=== PATIENT | female | born 1965 | race Caucasian/White ===

== ENCOUNTER 2016-02-26 19:03 | Emergency (ER) | payer OTHER ==
[~2016-02-26] VITALS: Ht 165.1 cm; Wt 101.7 kg
[~2016-02-26 19:03] MED LIST: ASMANEX HFA13 G1 IH; ATIVAN1 MG PO; BACLOFEN10 MG PO; CLARITIN10 M3 PO; COLACE100 MG PO; COMBIVENT RESPIM4 GM IH; COMBIVENT200 INHALA IH; DILAUDID2 MG PO; FLEET ENEMA-AD118 ML PR; FLOVENT 22120 INHALA IH; GRALISE300 MG PO; LISINOPRIL10 MG PO; LISINOPRIL20 MG PO; LORATADINE10 M2 PO; LORAZEPAM0.5 MG PO; LORTAB 5-325 M1 EACH PO; MEDROL DOSEPAK4 MG PO; MIRALAX255 GM PO; MORPHINE SULFAT15 M1 PO; NEURONTIN300 MG PO; NORCO 5/3251 TABLET PO; ONDANSETRON ODT4 MG PO; OXYCODONE HCL5 M1 PO; OXYCODONE-APAP1 EAC6 PO; PERCOCET 5/31 TABLET PO; PREDNISONE10 MG PO; PREMARIN VAGI42.5 GM VG; PRENATAL TABLE1 EAC3 PO; ROBAXIN750 MG PO; ROBITUSSIN NIG118 ML PO; TESSALON200 MG PO; VALIUM2 MG PO; VENTOLIN HFA18 GM; VENTOLIN HFA18 GM IH; ZOFRAN4 MG PO
[2016-02-26] MEDS ORDERED: CLEOCIN300 MG PO (20:08)
[2016-02-26] MEDS ORDERED: PERCOCET 5/31 TABLET PO (20:08)
[2016-02-26 20:56] VITALS: BP 115/96
== END 2016-02-26 20:57 | disposition home or self-care (01) ==
LOC: EME 19:03 → EXP 19:03
PROC: 0H9BXZZ Drainage of Right Upper Arm Skin, External Approach (ICD-10-PCS; principal; 2016-02-26)
DX: L02.411 Cutaneous abscess of right axilla (principal)
CPT/HCPCS: 99281; 99283

== ENCOUNTER 2016-02-29 13:57 | Emergency (ER) | payer OTHER ==
[~2016-02-29] VITALS: Ht 165.1 cm; Wt 101.2 kg
[~2016-02-29 13:57] MED LIST changes: +CLEOCIN300 MG PO
[2016-02-29] MEDS ORDERED: PERCOCET 5/31 TABLET PO (14:50)
[2016-02-29 15:15] VITALS: BP 143/90
== END 2016-02-29 15:17 | disposition home or self-care (01) ==
LOC: EME 13:57
DX: Z48.01 Encounter for change or removal of surgical wound dressing (principal); L02.411 Cutaneous abscess of right axilla
CPT/HCPCS: 99281; 99283

== ENCOUNTER 2016-04-19 13:43 | Outpatient (CLI) | payer OTHER ==
[~2016-04-19] VITALS: Ht 165.1 cm; Wt 95.0 kg
[2016-04-19 14:29] LABS: HEMATOCRIT 39.7 % (36.0-46.0); MCH 29.6 PG (29.0-34.0); MCV 89.6 FL (83-99); MEAN PLAT.VOLUME 10.6 uM^3 (9.5-12.4); PLATELET COUNT 190 K/uL (156-360); RBC DIS.WIDTH-CV 12.9 % (11.8-14.6); RBC DIS.WIDTH-SD 41.7 % (39-53); RED BLOOD COUNT 4.43 M/uL (3.80-5.20); WHITE BLOOD COUNT 5.1 K/uL (4.1-10.2)
[2016-04-19 14:37] LABS: CHLORIDE 103 mEq/L (99-109); POTASSIUM 4.6 mEq/L (3.7-5.4); SODIUM 137 mEq/L (136-147)
[2016-04-19 14:39] LABS: GLUCOSE 97 mg/dL (70-99)
[2016-04-19 14:40] LABS: ANION GAP 10 MEQ/L (2-14)
[2016-04-19 14:43] LABS: GFR ESTIMATE (CALCULATED) > 59 mL/min/
[2016-04-19 14:44] LABS: UREA NITROGEN (BUN) 8 mg/dL (9-23)
[2016-04-19 15:26] LABS: TROP-I INTERPRETATION NEGATIVE; TROPONIN-I < 0.01 ng/mL (0.0-0.30)
[2016-04-19 17:58] VITALS: BP 107/66
[2016-04-19 18:53] LABS: POINT-OF-CARE METER ID UU13113702
== END 2016-04-19 20:52 | disposition home or self-care (01) ==
LOC: AMB 13:43 → EME 13:43 → OPR 19:00 → EME 19:00 → SDC 19:00 → EME 19:00 → AMB 20:52 → SDC 20:52 → EDSTATUS 04-20 19:00
PROVIDERS: Emergency Medicine; Nurse Practitioner Family
PROC: 0DC38ZZ Extirpation of Matter from Lower Esophagus, Via Natural or Artificial Opening Endoscopic (ICD-10-PCS; principal; 2016-04-19)
DX: T18.128A Food in esophagus causing other injury, initial encounter (principal); R13.10 Dysphagia, unspecified; K22.10 Ulcer of esophagus without bleeding; K44.9 Diaphragmatic hernia without obstruction or gangrene; K29.70 Gastritis, unspecified, without bleeding; K29.80 Duodenitis without bleeding; J44.9 Chronic obstructive pulmonary disease, unspecified; G89.29 Other chronic pain; I10 Essential (primary) hypertension; Z79.891 Long term (current) use of opiate analgesic; Z88.1 Allergy status to other antibiotic agents; Z88.8 Allergy status to other drugs, medicaments and biological substances; Z88.6 Allergy status to analgesic agent; Z88.0 Allergy status to penicillin; F17.200 Nicotine dependence, unspecified, uncomplicated
CPT/HCPCS: 71020; 80048; 82948; 84484; 85027; 99281; 99285; C9113; J0330; J1100; J1170; J2270; J2405; J2765; J7030

== ENCOUNTER 2016-07-01 22:25 | Emergency (ER) | payer OTHER ==
[~2016-07-01] VITALS: Ht 165.1 cm; Wt 103.9 kg
[2016-07-02 00:14] VITALS: BP 170/118
== END 2016-07-02 00:15 | disposition home or self-care (01) ==
LOC: EME 22:25 → RME 22:25
DX: S43.402A Unspecified sprain of left shoulder joint, initial encounter (principal); X58.XXXA Exposure to other specified factors, initial encounter; I10 Essential (primary) hypertension; J44.9 Chronic obstructive pulmonary disease, unspecified; F17.200 Nicotine dependence, unspecified, uncomplicated
CPT/HCPCS: 73030; 99281; 99283; J1100

== ENCOUNTER 2016-08-09 21:27 | Observation (INO) | payer OTHER ==
[~2016-08-09] VITALS: Ht 165.1 cm; Wt 106.0 kg
[2016-08-09 21:47] LABS: HEMATOCRIT 43.6 % (36.0-46.0); MCH 29.7 PG (29.0-34.0); MCHC 32.8 G/DL (30.0-36.0); MCV 90.5 FL (83-99); PLATELET COUNT 206 K/uL (156-360); RBC DIS.WIDTH-CV 12.5 % (11.8-14.6); RBC DIS.WIDTH-SD 41.1 % (39-53); RED BLOOD COUNT 4.82 M/uL (3.80-5.20); WHITE BLOOD COUNT 6.2 K/uL (4.1-10.2)
[2016-08-09 21:58] LABS: CHLORIDE 108 mEq/L (99-109); POTASSIUM 3.8 mEq/L (3.7-5.4); SODIUM 142 mEq/L (136-147)
[2016-08-09 22:00] LABS: GLUCOSE 99 mg/dL (70-99)
[2016-08-09 22:01] LABS: ANION GAP 9 MEQ/L (2-14)
[2016-08-09 22:03] LABS: GFR ESTIMATE (CALCULATED) > 59 mL/min/
[2016-08-09 22:04] LABS: UREA NITROGEN (BUN) 10 mg/dL (9-23)
[2016-08-09 22:08] LABS: TROP-I INTERPRETATION NEGATIVE; TROPONIN-I < 0.01 ng/mL (0.0-0.30)
[2016-08-09] MEDS ORDERED: ATIVAN0.5 MG PO (22:32)
[2016-08-09] MEDS ORDERED: OMEPRAZOLE20 M2 PO (22:33)
[2016-08-09] MEDS ORDERED: VENTOLIN HFA18 GM IH (22:33)
[2016-08-09] MEDS ORDERED: PERCOCET 7.51 TABLET PO (22:33)
[2016-08-09] MEDS ORDERED: FLONASE16 G1 BOTH NARES (22:33)
[2016-08-10 01:12] VITALS: BP 113/72
[2016-08-10 02:54] LABS: D-DIMER ELISA 0.78 mg/L FEU (< 0.57); INTER. NORMALIZED RATIO 1.1; PROTHROMBIN TIME 10.8 (9.2-11.2); PTT 27.2 (25-32)
[2016-08-10 04:01] VITALS: BP 107/53
[2016-08-10 05:51] LABS: METH RESISTANT S AUREUS PCR POSITIVE (NEGATIVE)
[2016-08-10 05:53] LABS: TROP-I INTERPRETATION NEGATIVE; TROPONIN-I < 0.01 ng/mL (0.0-0.30)
[2016-08-10 06:04] LABS: PROBE CHECK PASS
[2016-08-10 08:30] VITALS: BP 107/55
[2016-08-10] MEDS ORDERED: PREDNISONE20 MG PO (11:23)
[2016-08-10 12:19] LABS: TROP-I INTERPRETATION NEGATIVE; TROPONIN-I < 0.01 ng/mL (0.0-0.30)
[2016-08-10 12:33] VITALS: BP 122/71
== END 2016-08-10 15:08 | disposition home or self-care (01) ==
LOC: EME → EDBD 21:27 → EDOF 08-10 00:18 → 5WEST 08-10 01:03
PROVIDERS: Hospitalist
DX: R07.89 Other chest pain (principal); J44.1 Chronic obstructive pulmonary disease with (acute) exacerbation; E66.01 Morbid (severe) obesity due to excess calories; Z68.38 Body mass index [BMI] 38.0-38.9, adult; I10 Essential (primary) hypertension; R60.0 Localized edema; F17.200 Nicotine dependence, unspecified, uncomplicated; Z88.8 Allergy status to other drugs, medicaments and biological substances
CPT/HCPCS: 71020; 71275; 80048; 84484; 85027; 85379; 85610; 85730; 87641; 93005; 94640; 94640 76; 99202; 99281; 99284; G0378; J1650; J2270; J2405; J7512

== ENCOUNTER 2016-08-23 14:03 | Emergency (ER) | payer OTHER ==
[~2016-08-23] VITALS: Ht 165.1 cm; Wt 96.8 kg
[~2016-08-23 14:03] MED LIST changes: +ATIVAN0.5 MG PO; +FLONASE16 G1 BOTH NARES; +OMEPRAZOLE20 M2 PO; +PERCOCET 7.51 TABLET PO; +PREDNISONE20 MG PO
[2016-08-23 17:34] VITALS: BP 159/108
== END 2016-08-23 17:37 | disposition home or self-care (01) ==
LOC: EME 14:03
DX: M25.551 Pain in right hip (principal); M25.552 Pain in left hip; G89.29 Other chronic pain; F11.20 Opioid dependence, uncomplicated; I10 Essential (primary) hypertension; K21.9 Gastro-esophageal reflux disease without esophagitis; F17.200 Nicotine dependence, unspecified, uncomplicated
CPT/HCPCS: 99281; 99283; J3010

== ENCOUNTER 2017-03-22 17:25 | Emergency (ER) | payer OTHER ==
[~2017-03-22] VITALS: Ht 165.1 cm; Wt 107.0 kg
[2017-03-22 18:20] LABS: HEMATOCRIT 38.9 % (36.0-46.0); HEMOGLOBIN 12.7 G/DL (11.9-15.5); MCH 29.7 PG (29.0-34.0); MCHC 32.6 G/DL (30.0-36.0); MCV 91.1 FL (83-99); PLATELET COUNT 207 K/uL (156-360); RBC DIS.WIDTH-SD 42.8 % (39-53); RED BLOOD COUNT 4.27 M/uL (3.80-5.20); WHITE BLOOD COUNT 8.9 K/uL (4.1-10.2)
[2017-03-22 18:32] LABS: ALBUMIN 3.7 g/dL (3.2-4.8)
[2017-03-22 18:33] LABS: CHLORIDE 105 mEq/L (99-109); POTASSIUM 3.3 mEq/L (3.7-5.4); SODIUM 142 mEq/L (136-147)
[2017-03-22 18:35] LABS: GLUCOSE 108 mg/dL (70-99); TOTAL PROTEIN 6.4 g/dL (6.4-8.3)
[2017-03-22 18:37] LABS: TOTAL BILIRUBIN 0.5 mg/dL (0.0-1.0)
[2017-03-22 18:38] LABS: ALKALINE PHOSPHATASE 90 IU/L (3-129)
[2017-03-22 18:39] LABS: CREATININE 0.8 mg/dL (0.6-1.3); GFR ESTIMATE (CALCULATED) > 59 mL/min/
[2017-03-22 18:40] LABS: AST (GOT) 10 IU/L (2-34); UREA NITROGEN (BUN) 11 mg/dL (9-23)
[2017-03-22 18:42] LABS: ALT (GPT) 8 IU/L (3-49)
[2017-03-22] MEDS ORDERED: DUONEB 2.5-0.5 M3 ML AEROSOL (21:00)
[2017-03-22 22:24] VITALS: BP 144/83
== END 2017-03-22 22:25 | disposition home or self-care (01) ==
LOC: EME 17:25
PROVIDERS: Nurse Practitioner Family
DX: J44.1 Chronic obstructive pulmonary disease with (acute) exacerbation (principal); J98.11 Atelectasis; R91.8 Other nonspecific abnormal finding of lung field; K21.9 Gastro-esophageal reflux disease without esophagitis; I10 Essential (primary) hypertension; F41.9 Anxiety disorder, unspecified; F32.9 Major depressive disorder, single episode, unspecified; F17.210 Nicotine dependence, cigarettes, uncomplicated; Z79.891 Long term (current) use of opiate analgesic; Z90.710 Acquired absence of both cervix and uterus; Z90.49 Acquired absence of other specified parts of digestive tract; Z88.1 Allergy status to other antibiotic agents; Z88.5 Allergy status to narcotic agent; Z88.6 Allergy status to analgesic agent; Z88.0 Allergy status to penicillin; Z88.8 Allergy status to other drugs, medicaments and biological substances
CPT/HCPCS: 71046; 71275; 80053; 83880; 85027; 85379; 93005; 94640; 94640 76; 99281; 99285

== ENCOUNTER 2017-05-10 22:42 | Inpatient (IN) | payer OTHER ==
[~2017-05-10] VITALS: Ht 165.1 cm; Wt 98.8 kg
[~2017-05-10 22:42] MED LIST changes: +DUONEB 2.5-0.5 M3 ML AEROSOL
[2017-05-10 23:16] LABS: BASOPHIL (%) 0.6 % (0-1); BASOPHIL COUNT 0.1 K/uL (0-0.1); EOSINOPHIL (%) 1.8 % (0-5); EOSINOPHIL COUNT 0.2 K/uL (0-0.3); HEMATOCRIT 43.7 % (36.0-46.0); HEMOGLOBIN 14.4 G/DL (11.9-15.5); IMMATURE GRANULOCYTE (%) 0.2 % (0.0-0.7); LYMPHOCYTE (%) 24.2 % (15-42); LYMPHOCYTE COUNT 2.4 K/uL (1.0-2.8); MCV 87.9 FL (83-99); MONOCYTE (%) 7.1 % (3-12); MONOCYTE COUNT 0.7 K/uL (0-0.8); NEUTROPHIL (%) 66.1 % (45-76); NEUTROPHIL COUNT 6.6 K/uL (1.8-6.4); PLATELET COUNT 247 K/uL (156-360); RBC DIS.WIDTH-SD 38.5 % (39-53); RED BLOOD COUNT 4.97 M/uL (3.80-5.20)
[2017-05-10 23:30] LABS: CHLORIDE 99 mEq/L (99-109); POTASSIUM 4.5 mEq/L (3.7-5.4); SODIUM 140 mEq/L (136-147)
[2017-05-10 23:32] LABS: GLUCOSE 97 mg/dL (70-99)
[2017-05-10 23:35] LABS: CREATININE 1.4 mg/dL (0.6-1.3); GFR ESTIMATE (CALCULATED) 42 mL/min/
[2017-05-10 23:36] LABS: UREA NITROGEN (BUN) 7 mg/dL (9-23)
[2017-05-10 23:40] LABS: TROP-I INTERPRETATION NEGATIVE; TROPONIN-I 0.02 ng/mL (0.0-0.30)
[2017-05-11 01:17] LABS: ALBUMIN 3.8 g/dL (3.2-4.8)
[2017-05-11 01:20] LABS: TOTAL PROTEIN 8.2 g/dL (6.4-8.3)
[2017-05-11 01:21] LABS: TOTAL BILIRUBIN 0.5 mg/dL (0.0-1.0)
[2017-05-11 01:22] LABS: ALKALINE PHOSPHATASE 125 IU/L (3-129)
[2017-05-11 01:25] LABS: AST (GOT) 26 IU/L (2-34); DIRECT BILIRUBIN 0.1 mg/dL (0.0-0.3)
[2017-05-11 01:26] LABS: ALT (GPT) 7 IU/L (3-49); LIPASE 8 U/L (1.0-51.0)
[2017-05-11 05:05] VITALS: BP 100/67
[2017-05-11 06:54] LABS: TROP-I INTERPRETATION NEGATIVE; TROPONIN-I 0.01 ng/mL (0.0-0.30)
[2017-05-11 08:04] VITALS: BP 113/60
[2017-05-11 09:58] LABS: CHLORIDE 103 MEQ/L (99-109); CREATININE 1.1 MG/DL (0.6-1.3); GFR ESTIMATE (CALCULATED) 56 mL/min/; GLUCOSE 104 mg/dL (70-99); SODIUM 141 MEQ/L (136-147); UREA NITROGEN (BUN) 7 mg/dL (9-23)
[2017-05-11 10:09] LABS: POTASSIUM 3.1 MEQ/L (3.7-5.4)
[2017-05-11] MEDS ORDERED: COMBIVENT RESPIM4 GM IH (11:59)
[2017-05-11] MEDS ORDERED: EFFEXOR75 MG PO (12:04)
[2017-05-11] MEDS ORDERED: MULTI-VITAMIN1 EAC4 PO (12:05)
[2017-05-11 12:50] LABS: TROP-I INTERPRETATION NEGATIVE; TROPONIN-I < 0.01 ng/mL (0.0-0.30)
[2017-05-11 15:54] VITALS: BP 117/58
[2017-05-11 19:20] VITALS: BP 113/58
[2017-05-12 01:15] VITALS: BP 139/74
[2017-05-12 04:50] VITALS: BP 133/66
[2017-05-12 05:47] LABS: BASOPHIL (%) 0.2 % (0-1); EOSINOPHIL (%) 0 % (0-5); HEMATOCRIT 38.6 % (36.0-46.0); HEMOGLOBIN 12.3 G/DL (11.9-15.5); IMMATURE GRANULOCYTE (%) 0.7 % (0.0-0.7); LYMPHOCYTE (%) 17.3 % (15-42); LYMPHOCYTE COUNT 0.8 K/uL (1.0-2.8); MCH 28.5 PG (29.0-34.0); MCHC 31.9 G/DL (30.0-36.0); MCV 89.6 FL (83-99); MONOCYTE (%) 3.3 % (3-12); MONOCYTE COUNT 0.2 K/uL (0-0.8); NEUTROPHIL (%) 78.5 % (45-76); NEUTROPHIL COUNT 3.6 K/uL (1.8-6.4); PLATELET COUNT 231 K/uL (156-360); RBC DIS.WIDTH-CV 11.9 % (11.8-14.6); RBC DIS.WIDTH-SD 38.8 % (39-53); RED BLOOD COUNT 4.31 M/uL (3.80-5.20); WHITE BLOOD COUNT 4.5 K/uL (4.1-10.2)
[2017-05-12 05:58] LABS: CHLORIDE 106 MEQ/L (99-109); CREATININE 0.9 MG/DL (0.6-1.3); GFR ESTIMATE (CALCULATED) > 59 mL/min/; SODIUM 140 MEQ/L (136-147); UREA NITROGEN (BUN) 11 mg/dL (9-23)
[2017-05-12 06:00] LABS: GLUCOSE 165 mg/dL (70-99); POTASSIUM 4.1 MEQ/L (3.7-5.4)
[2017-05-12 08:26] VITALS: BP 115/58
[2017-05-12] MEDS ORDERED: BENZONATATE100 MG PO (09:02)
[2017-05-12] MEDS ORDERED: PREDNISONE20 MG PO (09:02)
[2017-05-12] MEDS ORDERED: AZITHROMYCIN500 MG PO (09:03)
== END 2017-05-12 10:37 | disposition home or self-care (01) | DRG 191 ==
LOC: EME 22:42 → EDOF 05-11 03:49 → ENRESERV 05-11 03:49 → EDOF 05-11 03:49 → ENRESERV 05-11 04:00 → 5WEST 05-11 04:52
PROVIDERS: Emergency Medicine; Hospitalist; Physician Assistant
DX: J44.1 Chronic obstructive pulmonary disease with (acute) exacerbation (principal); N17.9 Acute kidney failure, unspecified; F33.9 Major depressive disorder, recurrent, unspecified; F17.210 Nicotine dependence, cigarettes, uncomplicated; G89.29 Other chronic pain; I10 Essential (primary) hypertension; I27.20 Pulmonary hypertension, unspecified; K21.9 Gastro-esophageal reflux disease without esophagitis; J32.0 Chronic maxillary sinusitis; R79.1 Abnormal coagulation profile; F41.9 Anxiety disorder, unspecified; R91.1 Solitary pulmonary nodule; E87.6 Hypokalemia; Z90.710 Acquired absence of both cervix and uterus; Z79.51 Long term (current) use of inhaled steroids; Z79.52 Long term (current) use of systemic steroids; Z82.49 Family history of ischemic heart disease and other diseases of the circulatory system
CPT/HCPCS: 70450; 71046; 71275; 80048; 80076; 83690; 84484; 85025; 85379; 87641; 93005; 94640; 94640 76; 94760; 99202; 99281; 99285; J1644; J2920; J3010; J7030